=== PATIENT | male | born 1980 | race Caucasian/White ===

== ENCOUNTER 2018-11-22 06:10 | Emergency (ER) | payer MEDICAID ==
[~2018-11-22] VITALS: Ht 157.5 cm; Wt 52.6 kg
[~2018-11-22 06:10] MED LIST: EPIPEN 2-PAK1 MG/ML MR; PREDNISONE20 MG PO
[2018-11-22 06:15] VITALS: Ht 157.5 cm; Wt 52.6 kg
[2018-11-22 07:01] LABS: BASOPHIL % 0.7 % (0-2); PLATELET COUNT 214 x10^3mcL (130-400)
[2018-11-22 07:18] LABS: microscopic required? NO
[2018-11-22 07:31] LABS: CALCIUM 8.9 mg/dL (8.5-10.1); CARBON DIOXIDE 28.8 mmol/L (21-32); CHLORIDE SERUM 103 mmol/L (98-107); CREATININE SERUM 0.7 mg/dL (0.7-1.3); GFR1 > 60 mL/min; GLUCOSE SERUM 82 mg/dL (74-106); POTASSIUM SERUM 3.7 mmol/L (3.5-5.1); SODIUM SERUM 139 mmol/L (136-145)
[2018-11-22 07:35] LABS: ALBUMIN 3.8 g/dL (3.4-5.0); ALKALINE PHOSPHATASE 139 U/L (46-116); ALT/SGPT 98 U/L (16-63); AST/SGOT 64 U/L (15-37); BILIRUBIN TOTAL 0.29 mg/dL (0.20-1.00); LIPASE 147 IU/L (73-393); MAGNESIUM 2.2 mg/dL (1.8-2.4); TOTAL PROTEIN, SERUM 7.8 g/dL (6.4-8.2)
[2018-11-22 07:43] LABS: CHOLESTEROL 260 mg/dL (<200); HDL CHOLESTEROL 62 mg/dL (40-60)
[2018-11-22 07:53] LABS: UA SPECIFIC GRAVITY <=1.005 (1.005-1.035); urine erythrocyte NEGATIVE (NEGATIVE)
[2018-11-22 08:51] LABS: AMPHETAMINE QUAL UR POSITIVE (See below)
[2018-11-22 11:08] VITALS: BP 120/82
== END 2018-11-22 11:08 | disposition home or self-care (01) ==
LOC: ED 06:10
PROVIDERS: Emergency Medicine
DX: R07.89 Other chest pain (principal); I45.4 Nonspecific intraventricular block; F15.10 Other stimulant abuse, uncomplicated; F17.210 Nicotine dependence, cigarettes, uncomplicated; Z71.6 Tobacco abuse counseling
CPT/HCPCS: 83880; 99406; G0480; J3411; J3475; J7042; Q0092